=== PATIENT | male | born 1985 | race Caucasian/White ===

== ENCOUNTER → 2016-08-31 | Outpatient (CLI) | payer OTHER ==
[2016-08-31 19:23] LABS: BASO % 0.4 % (0.0-1.0); EOS # 0.1 K/mm3 (0.0-0.50); EOS % 2.4 % (0.0-3.0); LARGE UNSTAINED CELL # 0.2 K/mm3 (0.0-0.4); LARGE UNSTAINED CELL % 2.7 % (0.0-4.0); LYMPH # 1.6 K/mm3 (1.5-4.5); LYMPH % 25.9 % (24.0-44.0); MEAN CORPUSCULAR HEMOGLOBIN 30.4 pg (27.0-33.0); MEAN CORPUSCULAR HGB CONC 35.6 g/dl (32.0-36.5); MEAN CORPUSCULAR VOLUME 85.5 fl (80.0-96.0); MONO # 0.3 K/mm3 (0.0-0.8); MONO % 5.4 % (0.0-5.0); NEUTROPHILS # 3.8 K/mm3 (1.8-7.7); NEUTROPHILS % 63.2 % (36.0-66.0); PLATELET COUNT, AUTOMATED 213 k/mm3 (150-450); RED CELL DISTRIBUTION WIDTH 12.1 % (11.5-14.5)
== END ==
LOC: M WUC 17:27
PROVIDERS: ATTEND Physician Assistant
DX: K21.9 Gastro-esophageal reflux disease without esophagitis (principal)

== ENCOUNTER → 2016-09-25 | Outpatient (REF) | payer OTHER | LOC: M SFHCPLAZ 16:01 | PROVIDERS: ATTEND Nurse Practitioner Family | DX: Z00.00 Encounter for general adult medical examination without abnormal findings (principal); Z13.220 Encounter for screening for lipoid disorders ==

== ENCOUNTER 2016-10-10 14:14 | Emergency (ER) | payer OTHER ==
[2016-10-10] MEDS ORDERED: methylPREDNISolone INJ 125 MG/2 ML VIAL (J2930) As Ordered ONE (14:41)
[2016-10-10] MEDS ORDERED: FAMOTIDINE 20 MG TAB As Ordered ONE (14:41)
[2016-10-10] MEDS ORDERED: diphenhydrAMINE 25 MG CAP As Ordered ONE (14:41)
--- NOTE | 2016-10-10 15:53 | EDDOCDS ---
Physician Documentation [facility] Name: Ike Marcelino Age: 31 yrs Sex: Male : 1985 Arrival Date: 10/10/2016 Time: 14:14 Bed PD Private MD: Adolfo Clayton MD Disposition: 10/10/16 15:45 Discharged to Home/Self Care. Impression: Urticaria. - Condition is Stable. - Discharge Instructions: Hives. - Prescriptions for Prednisone 20 mg Oral Tablet - take 1 tablet by ORAL route once daily for 5 days; 5 tablet. Pepcid 20 mg Oral Tablet - take 1 tablet by ORAL route every 12 hours for 10 days; 20 tablet. - Medication Reconciliation form. - Follow up: Emergency Department; When: As needed. Follow up: Adolfo Clayton; When: Call to arrange an appointment; Reason: Wound/Symptom Recheck, Recheck today's complaints, Worsening of conditions, Continuance of care. - Problem is new. - Symptoms have improved. Historical: - Allergies: eggs; - Home Meds: 1. Prilosec 40 mg Oral cpDR 1 cap once daily - PMHx: GERD; - PSHx: none; - Social history: Smoking status: Patient states former smoker of tobacco. No barriers to communication noted, The patient speaks fluent Persian, Speaks appropriately for age. - Family history: Not pertinent. - : The pt / caregiver states he / she is not on anticoagulants. Home medication list is obtained from the patient. - Exposure Risk Screening:: None identified. Vital Signs: 10/10 14:16 BP 152 / 83; Pulse 111; Resp 18; Temp 96.9; Pulse Ox 100% ; Weight 72.57 kg / 159.99 cmb lbs; Height 5 ft. 8 in. (172.72 cm); Pain 0/10; 15:31 BP 130 / 71; Pulse 88; Resp 16; Temp 97.8(O); Pulse Ox 98% on R/A; Pain 0/10; sew 14:16 Body Mass Index 24.33 (72.57 kg, 172.72 cm) cmb MDM: 14:37 methylPREDNISolone Sodium Succinate 125 mg IM once ordered. cc10 14:37 diphenhydrAMINE 25 mg PO once ordered. cc10 14:37 Famotidine 20 mg PO once ordered. cc10 14:45 Vital Signs ordered. cc10 15:10 Financial registration complete. ks16 15:10 [facility] Payment Agreement was scanned into [employer] and attached to record. ks16 Administered Medications: 14:47 Drug: methylPREDNISolone Sodium Succinate 125 mg [methylprednisolone sodium succ 125 mg kc3 solution for injection (125 mg)] Route: IM; Site: right gluteus; 14:47 Drug: diphenhydrAMINE 25 mg [diphenhydramine 25 mg capsule (1 caps)] Route: PO; kc3 14:47 Drug: Famotidine 20 mg [famotidine 20 mg tablet (1 tabs)] Route: PO; kc3 Signatures: Kenneth Casanova, JR PAMegha cc10 Shikha Mckay RN RN kc3 Laura Hughes, Reg Reg ks16 The chart was reviewed and I authenticate all verbal orders and agree with the evaluation and treatment provided.Attachments: 15:10 [facility] Payment Agreement ks16 MTDD
--- NOTE | 2016-10-10 15:53 | EDDOCDS ---
Nurse's Notes [facility] Name: Ike Marcelino Age: 31 yrs Sex: Male : 1985 Arrival Date: 10/10/2016 Time: 14:14 Bed PD Private MD: Adolfo Clayton MD Diagnosis: Urticaria Presentation: 10/10 14:17 Presenting complaint: Patient states: hives and mild difficulty swallowing after eating kc3 pancake this AM. Pt reports no eggs in pancake. Onset: The symptoms/episode began/occurred at 13:55. The patient has a history of a previous allergic reaction. The previous reaction was anaphylactic. Anaphylaxis evaluation, the patient reports or I have noted the following symptoms which indicate a significant risk of anaphylaxis: lump in the throat which may suggest laryngeal edema. Adult Sepsis Screening: The patient does not have new or worsening altered mentation. Patient's respiratory rate is less than 22. Systolic blood pressure is greater than 100. Patient has a qSOFA score of 0- Negative Sepsis Screen. Suicide/Homicide risk assessment- the patient denies having any suicidal and/or homicidal ideations and does not present with any other emotional, behavioral or mental health complaints. Status: Patient is not a room service attendant or dependent. Transition of care: patient was not received from another setting of care. 14:17 Acuity: CAPO Level 3 kc3 14:17 Method Of Arrival: Walkin/Carried/Asstd kc3 Triage Assessment: 14:20 General: Appears in no apparent distress, comfortable, Behavior is appropriate for age, kc3 cooperative. Pain: Denies pain. HIV screening NA for this visit Offered previously. Respiratory: Airway is patent Reports mild "lump in my throat". Derm: Rash noted that is urticaria, on left arm. Historical: - Allergies: eggs; - Home Meds: 1. Prilosec 40 mg Oral cpDR 1 cap once daily - PMHx: GERD; - PSHx: none; - Social history: Smoking status: Patient states former smoker of tobacco. No barriers to communication noted, The patient speaks fluent Welsh, Speaks appropriately for age. - Family history: Not pertinent. - : The pt / caregiver states he / she is not on anticoagulants. Home medication list is obtained from the patient. - Exposure Risk Screening:: None identified. Screenin:51 Screening information is obtained from the patient. Fall risk: No risks identified. kc3 Assistance ADL's: requires no assistance with activities of daily living. Abuse/DV Screen: The patient / caregiver reports he/she is: not in a situation that causes fear, pain or injury. Nutritional screening: No deficits noted. Advance Directives: Currently, there is no health care proxy. home support is adequate. Assessment: 14:51 General: Appears in no apparent distress, comfortable, Behavior is appropriate for age, ms18 cooperative, pleasant. Pain: Denies pain. Neurological: Level of Consciousness is awake, alert, obeys commands, Oriented to person, place, time. EENT: Reports that his throat is a little scratchy . Respiratory: Airway is patent Breath sounds are clear bilaterally. Derm: Skin is pink, warm & dry. Rash noted that is itchy, urticaria, on palmar aspect of left forearm. 15:22 General: Appears in no apparent distress, comfortable, Behavior is appropriate for age, ms18 cooperative, Pt states that his arm is looking and feeling better, but now he has noticed some redness on his waistline. ER provider aware of this. Vital Signs: 14:16 BP 152 / 83; Pulse 111; Resp 18; Temp 96.9; Pulse Ox 100% ; Weight 72.57 kg; Height 5 cmb ft. 8 in. (172.72 cm); Pain 0/10; 15:31 BP 130 / 71; Pulse 88; Resp 16; Temp 97.8(O); Pulse Ox 98% on R/A; Pain 0/10; sew 14:16 Body Mass Index 24.33 (72.57 kg, 172.72 cm) cmb Vitals: 14:16 Log In Time: October 10, 2016 at 14:14. RN notified that patient meets Red Flag cmb criteria. ED Course: 14:15 Patient visited by Carole Johnson. cmb 14:15 Patient moved to Waiting cmb 14:16 Adolfo Clayton is Private Physician. cmb 14:17 Patient moved to Pre RCE kc3 14:19 Triage Initiated kc3 14:25 Patient moved to Triage 3 mlb1 14:31 [facility] cc10 14:31 Edu Early MD is Attending Physician. cc10 14:31 Patient visited by Kenneth Casanova PA-C. cc10 14:31 Patient visited by Kenneth Casanova PA-C. cc10 14:47 Patient moved to PD kc3 14:51 Patient visited by Anika No RN. ms18 15:10 [facility] Payment Agreement was scanned into [employer] and attached to record. ks16 15:22 Patient visited by Anika No RN. ms18 15:32 Patient visited by Aracelis Blake. sew 15:45 Adolfo Clayton is Referral Physician. cc10 15:51 The patient / caregiver is instructed regarding the plan of care and ED course. kc3 15:51 No IV's were initiated during this patient's visit. No procedures done that require kc3 assistance. Administered Medications: 14:47 Drug: methylPREDNISolone Sodium Succinate 125 mg [methylprednisolone sodium succ 125 mg kc3 solution for injection (125 mg)] Route: IM; Site: right gluteus; 14:47 Drug: diphenhydrAMINE 25 mg [diphenhydramine 25 mg capsule (1 caps)] Route: PO; kc3 14:47 Drug: Famotidine 20 mg [famotidine 20 mg tablet (1 tabs)] Route: PO; kc3 Order Results: There are currently no results for this order. Outcome: 15:45 Discharge ordered by Provider. cc10 15:51 Discharge Assessment: Patient awake, alert and oriented x 3. No cognitive and/or kc3 functional deficits noted. Patient verbalized understanding of disposition instructions. patient administered narcotics - no. The following High Risk Discharge criteria are identified: None. Discharged to home ambulatory. Condition: stable. Discharge instructions given to patient, Instructed on discharge instructions, follow up and referral plans. medication usage, Demonstrated understanding of instructions, medications, Pt was receptive of discharge instructions/ teaching. Prescriptions given X 2. No special radiology studies were completed. Property :Personal belongings accompany Pt. 15:52 Patient left the ED. kc3 Signatures: Kalen Alaniz RN RN mlCarole Hsieh Sarah sew Kenneth Casanova PA-C PA-C cc10 Anika No RN RN ms18 Shikha Mckay RN RN kc3 Laura Hughes, Reg Reg ks16 MTDD
--- NOTE | 2016-10-12 16:52 | EDDOCDS ---
Nurse's Notes [facility] Name: Ike Marcelino Age: 31 yrs Sex: Male : 1985 Arrival Date: 10/10/2016 Time: 14:14 Bed PD Private MD: Adolfo Clayton MD Diagnosis: Urticaria Presentation: 10/10 14:17 Presenting complaint: Patient states: hives and mild difficulty swallowing after eating kc3 pancake this AM. Pt reports no eggs in pancake. Onset: The symptoms/episode began/occurred at 13:55. The patient has a history of a previous allergic reaction. The previous reaction was anaphylactic. Anaphylaxis evaluation, the patient reports or I have noted the following symptoms which indicate a significant risk of anaphylaxis: lump in the throat which may suggest laryngeal edema. Adult Sepsis Screening: The patient does not have new or worsening altered mentation. Patient's respiratory rate is less than 22. Systolic blood pressure is greater than 100. Patient has a qSOFA score of 0- Negative Sepsis Screen. Suicide/Homicide risk assessment- the patient denies having any suicidal and/or homicidal ideations and does not present with any other emotional, behavioral or mental health complaints. 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 Transition of care: patient was not received from another setting of care. 14:17 Acuity: CAPO Level 3 kc3 14:17 Method Of Arrival: Walkin/Carried/Asstd kc3 Triage Assessment: 14:20 General: Appears in no apparent distress, comfortable, Behavior is appropriate for age, kc3 cooperative. Pain: Denies pain. HIV screening NA for this visit Offered previously. Respiratory: Airway is patent Reports mild "lump in my throat". Derm: Rash noted that is urticaria, on left arm. Historical: - Allergies: eggs; - Home Meds: 1. Prilosec 40 mg Oral cpDR 1 cap once daily - PMHx: GERD; - PSHx: none; - Social history: Smoking status: Patient states former smoker of tobacco. No barriers to communication noted, The patient speaks fluent Kyrgyz, Speaks appropriately for age. - Family history: Not pertinent. - : The pt / caregiver states he / she is not on anticoagulants. Home medication list is obtained from the patient. - Exposure Risk Screening:: None identified. Screenin:51 Screening information is obtained from the patient. Fall risk: No risks identified. kc3 Assistance ADL's: requires no assistance with activities of daily living. Abuse/DV Screen: The patient / caregiver reports he/she is: not in a situation that causes fear, pain or injury. Nutritional screening: No deficits noted. Advance Directives: Currently, there is no health care proxy. home support is adequate. Assessment: 14:51 General: Appears in no apparent distress, comfortable, Behavior is appropriate for age, ms18 cooperative, pleasant. Pain: Denies pain. Neurological: Level of Consciousness is awake, alert, obeys commands, Oriented to person, place, time. EENT: Reports that his throat is a little scratchy . Respiratory: Airway is patent Breath sounds are clear bilaterally. Derm: Skin is pink, warm & dry. Rash noted that is itchy, urticaria, on palmar aspect of left forearm. 15:22 General: Appears in no apparent distress, comfortable, Behavior is appropriate for age, ms18 cooperative, Pt states that his arm is looking and feeling better, but now he has noticed some redness on his waistline. ER provider aware of this. 15:52 General: Appears in no apparent distress, comfortable, Behavior is appropriate for age, kc3 cooperative. Pain: Denies pain. Respiratory: Airway is patent Respiratory effort is even, unlabored. Vital Signs: 14:16 BP 152 / 83; Pulse 111; Resp 18; Temp 96.9; Pulse Ox 100% ; Weight 72.57 kg; Height 5 cmb ft. 8 in. (172.72 cm); Pain 0/10; 15:31 BP 130 / 71; Pulse 88; Resp 16; Temp 97.8(O); Pulse Ox 98% on R/A; Pain 0/10; sew 14:16 Body Mass Index 24.33 (72.57 kg, 172.72 cm) cmb Vitals: 14:16 Log In Time: October 10, 2016 at 14:14. RN notified that patient meets Red Flag cmb criteria. ED Course: 14:15 Patient visited by Carole Johnson. cmb 14:15 Patient moved to Waiting cmb 14:16 Adolfo Clayton is Private Physician. cmb 14:17 Patient moved to Pre RCE kc3 14:19 Triage Initiated kc3 14:25 Patient moved to Triage 3 mlb1 14:31 [facility] cc10 14:31 Edu Early MD is Attending Physician. cc10 14:31 Patient visited by Kenneth Casanova PA-C. cc10 14:31 Patient visited by Kenneth Casanova PA-C. cc10 14:47 Patient moved to PD2 / kc3 14:51 Patient visited by Anika No RN. ms18 15:10 [facility] Payment Agreement was scanned into [employer] and attached to record. ks16 15:22 Patient visited by Anika No RN. ms18 15:32 Patient visited by Aracelis Blake. sew 15:45 Adolfo Clayton is Referral Physician. cc10 15:51 The patient / caregiver is instructed regarding the plan of care and ED course. kc3 15:51 No IV's were initiated during this patient's visit. No procedures done that require kc3 assistance. 10/11 09:36 T-Sheet-- Draft Copy was scanned into [employer] and attached to record. [facility] Administered Medications: 10/10 14:47 Drug: methylPREDNISolone Sodium Succinate 125 mg [methylprednisolone sodium succ 125 mg kc3 solution for injection (125 mg)] Route: IM; Site: right gluteus; 14:47 Drug: diphenhydrAMINE 25 mg [diphenhydramine 25 mg capsule (1 caps)] Route: PO; kc3 14:47 Drug: Famotidine 20 mg [famotidine 20 mg tablet (1 tabs)] Route: PO; kc3 Order Results: There are currently no results for this order. Outcome: 15:45 Discharge ordered by Provider. cc10 15:51 Discharge Assessment: Patient awake, alert and oriented x 3. No cognitive and/or kc3 functional deficits noted. Patient verbalized understanding of disposition instructions. patient administered narcotics - no. The following High Risk Discharge criteria are identified: None. Discharged to home ambulatory. Condition: stable. Discharge instructions given to patient, Instructed on discharge instructions, follow up and referral plans. medication usage, Demonstrated understanding of instructions, medications, Pt was receptive of discharge instructions/ teaching. Prescriptions given X 2. No special radiology studies were completed. Property :Personal belongings accompany Pt. 15:52 Patient left the ED. kc3 Signatures: Kalen Alaniz, RN RN mlb1 Carole Johnson Sarah sew [place], Colin, PA-C PA-C cc10 Anika No,RN RN ms18 Shikha Mckay,RN RN kc3 Laura Hughes, Reg Reg ks16 Paolo, Aracelis cortes Chart Complete MTDD
--- NOTE | 2016-10-12 16:52 | EDDOCDS ---
Physician Documentation [facility] Name: Ike Marcelino Age: 31 yrs Sex: Male : 1985 Arrival Date: 10/10/2016 Time: 14:14 Bed PD Private MD: Adolfo Clayton MD Disposition: 10/10/16 15:45 Discharged to Home/Self Care. Impression: Urticaria. - Condition is Stable. - Discharge Instructions: Hives. - Prescriptions for Prednisone 20 mg Oral Tablet - take 1 tablet by ORAL route once daily for 5 days; 5 tablet. Pepcid 20 mg Oral Tablet - take 1 tablet by ORAL route every 12 hours for 10 days; 20 tablet. - Medication Reconciliation form. - Follow up: Emergency Department; When: As needed. Follow up: Adolfo Clayton; When: Call to arrange an appointment; Reason: Wound/Symptom Recheck, Recheck today's complaints, Worsening of conditions, Continuance of care. - Problem is new. - Symptoms have improved. Historical: - Allergies: eggs; - Home Meds: 1. Prilosec 40 mg Oral cpDR 1 cap once daily - PMHx: GERD; - PSHx: none; - Social history: Smoking status: Patient states former smoker of tobacco. No barriers to communication noted, The patient speaks fluent Swedish, Speaks appropriately for age. - Family history: Not pertinent. - : The pt / caregiver states he / she is not on anticoagulants. Home medication list is obtained from the patient. - Exposure Risk Screening:: None identified. Vital Signs: 10/10 14:16 BP 152 / 83; Pulse 111; Resp 18; Temp 96.9; Pulse Ox 100% ; Weight 72.57 kg / 159.99 cmb lbs; Height 5 ft. 8 in. (172.72 cm); Pain 0/10; 15:31 BP 130 / 71; Pulse 88; Resp 16; Temp 97.8(O); Pulse Ox 98% on R/A; Pain 0/10; sew 14:16 Body Mass Index 24.33 (72.57 kg, 172.72 cm) cmb MDM: 14:37 methylPREDNISolone Sodium Succinate 125 mg IM once ordered. cc10 14:37 diphenhydrAMINE 25 mg PO once ordered. cc10 14:37 Famotidine 20 mg PO once ordered. cc10 14:45 Vital Signs ordered. cc10 15:10 Financial registration complete. wa16 15:10 [facility] Payment Agreement was scanned into [employer] and attached to record. wa10/11 09:36 T-Sheet-- Draft Copy was scanned into [employer] and attached to record. se Administered Medications: 10/10 14:47 Drug: methylPREDNISolone Sodium Succinate 125 mg [methylprednisolone sodium succ 125 mg kc3 solution for injection (125 mg)] Route: IM; Site: right gluteus; 14:47 Drug: diphenhydrAMINE 25 mg [diphenhydramine 25 mg capsule (1 caps)] Route: PO; kc3 14:47 Drug: Famotidine 20 mg [famotidine 20 mg tablet (1 tabs)] Route: PO; kc3 Signatures: Kenneth Casanova, PASamreenC PA-C cc10 Shikha Mckay RN RN kc3 Laura Hughes, Reg Reg ks16 Aracelis Boone [facility] The chart was reviewed and I authenticate all verbal orders and agree with the evaluation and treatment provided.Attachments: 15:10 [facility] Payment Agreement 10/11 09:36 T-Sheet-- Draft Copy [facility] Chart Complete MTDD
--- NOTE | 2016-10-12 16:52 | EDDOCDS ---
Physician Documentation [facility] Name: Ike Marcelino Age: 31 yrs Sex: Male : 1985 Arrival Date: 10/10/2016 Time: 14:14 Bed PD Private MD: Adolfo Clayton MD Disposition: 10/10/16 15:45 Discharged to Home/Self Care. Impression: Urticaria. - Condition is Stable. - Discharge Instructions: Hives. - Prescriptions for Prednisone 20 mg Oral Tablet - take 1 tablet by ORAL route once daily for 5 days; 5 tablet. Pepcid 20 mg Oral Tablet - take 1 tablet by ORAL route every 12 hours for 10 days; 20 tablet. - Medication Reconciliation form. - Follow up: Emergency Department; When: As needed. Follow up: Adolfo Clayton; When: Call to arrange an appointment; Reason: Wound/Symptom Recheck, Recheck today's complaints, Worsening of conditions, Continuance of care. - Problem is new. - Symptoms have improved. Historical: - Allergies: eggs; - Home Meds: 1. Prilosec 40 mg Oral cpDR 1 cap once daily - PMHx: GERD; - PSHx: none; - Social history: Smoking status: Patient states former smoker of tobacco. No barriers to communication noted, The patient speaks fluent Greek, Speaks appropriately for age. - Family history: Not pertinent. - : The pt / caregiver states he / she is not on anticoagulants. Home medication list is obtained from the patient. - Exposure Risk Screening:: None identified. Vital Signs: 10/10 14:16 BP 152 / 83; Pulse 111; Resp 18; Temp 96.9; Pulse Ox 100% ; Weight 72.57 kg / 159.99 cmb lbs; Height 5 ft. 8 in. (172.72 cm); Pain 0/10; 15:31 BP 130 / 71; Pulse 88; Resp 16; Temp 97.8(O); Pulse Ox 98% on R/A; Pain 0/10; sew 14:16 Body Mass Index 24.33 (72.57 kg, 172.72 cm) cmb MDM: 14:37 methylPREDNISolone Sodium Succinate 125 mg IM once ordered. cc10 14:37 diphenhydrAMINE 25 mg PO once ordered. cc10 14:37 Famotidine 20 mg PO once ordered. cc10 14:45 Vital Signs ordered. cc10 15:10 Financial registration complete. sd16 15:10 [facility] Payment Agreement was scanned into [email or web address] and attached to record. sd10/11 09:36 T-Sheet-- Draft Copy was scanned into [email or web address] and attached to record. se Administered Medications: 10/10 14:47 Drug: methylPREDNISolone Sodium Succinate 125 mg [methylprednisolone sodium succ 125 mg kc3 solution for injection (125 mg)] Route: IM; Site: right gluteus; 14:47 Drug: diphenhydrAMINE 25 mg [diphenhydramine 25 mg capsule (1 caps)] Route: PO; kc3 14:47 Drug: Famotidine 20 mg [famotidine 20 mg tablet (1 tabs)] Route: PO; kc3 Signatures: Kenneth Casanova, PASamreenC PA-C cc10 Shikha Mckay RN RN kc3 Laura Hughes, Reg Reg ks16 Aracelis Boone [facility] The chart was reviewed and I authenticate all verbal orders and agree with the evaluation and treatment provided.Attachments: 15:10 [facility] Payment Agreement 10/11 09:36 T-Sheet-- Draft Copy [facility] Chart Complete MTDD
== END 2016-10-10 15:52 | disposition home or self-care (01) ==
LOC: M ED 14:14
DX: L50.0 Allergic urticaria (principal); K21.9 Gastro-esophageal reflux disease without esophagitis; Z79.899 Other long term (current) drug therapy; Z91.012 Allergy to eggs; Z87.891 Personal history of nicotine dependence
CPT/HCPCS: 96372; 99283; J2930

== ENCOUNTER 2016-11-30 21:46 | Emergency (ER) | payer OTHER ==
[~2016-11-30] VITALS: Ht 172.7 cm; Wt 68.0 kg
[2016-11-30] MEDS ORDERED: KETOROLAC 60 MG/2 ML VIAL (J1885) IM ONE (23:45)
[2016-11-30 23:58] VITALS: BP 132/76
--- NOTE | 2016-12-01 05:10 | ECGEPIP ---
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
== END 2016-12-01 | disposition home or self-care (01) ==
LOC: M ED 23:11
DX: R07.89 Other chest pain (principal); K21.9 Gastro-esophageal reflux disease without esophagitis
CPT/HCPCS: 93005; 96372; 99282; J1885

== ENCOUNTER 2017-02-25 23:04 | Emergency (ER) | payer OTHER ==
[~2017-02-25] VITALS: Ht 172.7 cm; Wt 78.0 kg
[2017-02-25 23:05] VITALS: BP 129/73
[2017-02-25] MEDS ORDERED: LORA10TA2 PO (23:29)
[2017-02-25] MEDS ORDERED: PANT40TA2 PO (23:29)
== END 2017-02-26 03:26 | disposition left against medical advice (07) ==
LOC: M ED 23:04
DX: S80.861A Insect bite (nonvenomous), right lower leg, initial encounter (principal); W57.XXXA Bitten or stung by nonvenomous insect and other nonvenomous arthropods, initial encounter; Y92.9 Unspecified place or not applicable; Y93.9 Activity, unspecified; Y99.9 Unspecified external cause status; T78.40XA Allergy, unspecified, initial encounter; Z53.21 Procedure and treatment not carried out due to patient leaving prior to being seen by health care provider

== ENCOUNTER 2017-03-15 22:43 | Emergency (ER) | payer OTHER ==
[~2017-03-15] VITALS: Ht 172.7 cm; Wt 78.0 kg
[~2017-03-15 22:43] MED LIST: LORA10TA2 PO; PANT40TA2 PO
[2017-03-15 22:44] VITALS: BP 138/81
[2017-03-15] MEDS ORDERED: BENA25CA4 PO (22:53)
[2017-03-16] MEDS ORDERED: methylPREDNISolone INJ 125 MG/2 ML VIAL (J2930) IM ONE (00:45)
== END 2017-03-16 00:45 | disposition home or self-care (01) ==
LOC: M ED 22:43
DX: R21 Rash and other nonspecific skin eruption (principal); T78.40XA Allergy, unspecified, initial encounter; Y92.9 Unspecified place or not applicable; Y93.9 Activity, unspecified; J30.2 Other seasonal allergic rhinitis; F17.200 Nicotine dependence, unspecified, uncomplicated; Z79.899 Other long term (current) drug therapy; Z91.012 Allergy to eggs
CPT/HCPCS: 96374; 99282; J2930

== ENCOUNTER 2017-04-01 19:16 | Emergency (ER) | payer OTHER ==
[~2017-04-01] VITALS: Ht 172.7 cm; Wt 78.2 kg
[~2017-04-01 19:16] MED LIST changes: +BENA25CA4 PO
[2017-04-01 19:18] VITALS: BP 107/74
[2017-04-01] MEDS ORDERED: MEDR4PAK PO (20:26)
[2017-04-01] MEDS ORDERED: predniSONE 20 MG TAB PO ONE (20:30)
== END 2017-04-01 20:42 | disposition home or self-care (01) ==
LOC: M ED 19:16
DX: L50.0 Allergic urticaria (principal); K21.9 Gastro-esophageal reflux disease without esophagitis; Z91.012 Allergy to eggs; Z79.899 Other long term (current) drug therapy

== ENCOUNTER 2018-01-20 13:10 | Emergency (ER) | payer OTHER | END 2018-01-20 14:02 | disposition left against medical advice (07) | LOC: M ED 13:10 | DX: Z53.21 Procedure and treatment not carried out due to patient leaving prior to being seen by health care provider (principal) ==

== ENCOUNTER → 2018-01-26 | Outpatient (CLI) | payer OTHER ==
[2018-01-26 10:16] LABS: HEMATOCRIT 44.7 % (42.0-52.0); MEAN CORPUSCULAR HEMOGLOBIN 30.7 pg (27.0-33.0); MEAN CORPUSCULAR HGB CONC 35.8 g/dl (32.0-36.5); MEAN CORPUSCULAR VOLUME 85.6 fl (80.0-96.0); PLATELET COUNT, AUTOMATED 171 10^3/uL (150-450); RED BLOOD COUNT 5.22 10^6/uL (4.30-6.10); RED CELL DISTRIBUTION WIDTH 12.5 % (11.5-14.5); WHITE BLOOD COUNT 6.1 10^3/uL (4.0-10.0)
[2018-01-26 10:45] LABS: ALBUMIN 3.8 GM/DL (3.2-5.2); ALBUMIN/GLOBULIN RATIO 1.03 (1.00-1.93); ALKALINE PHOSPHATASE 69 U/L (45-117); ALT/SGPT 52 U/L (12-78); ANION GAP 6 MEQ/L (8-16); AST/SGOT 30 U/L (7-37); BILIRUBIN,TOTAL 0.4 MG/DL (0.2-1.0); BLOOD UREA NITROGEN 7 MG/DL (7-18); CALCIUM LEVEL 8.7 MG/DL (8.5-10.1); CARBON DIOXIDE LEVEL 32 MEQ/L (21-32); CHLORIDE LEVEL 107 MEQ/L (98-107); CREATININE FOR GFR 0.87 MG/DL (0.70-1.30); GLOMERULAR FILTRATION RATE > 60.0 (>60); GLUCOSE, FASTING 91 MG/DL (70-100); LIPASE 95 U/L (73-393); POTASSIUM SERUM 3.8 MEQ/L (3.5-5.1); SODIUM LEVEL 145 MEQ/L (136-145); TOTAL PROTEIN 7.5 GM/DL (6.4-8.2)
== END ==
LOC: M LAB 09:42
DX: D69.6 Thrombocytopenia, unspecified (principal); R10.84 Generalized abdominal pain
CPT/HCPCS: 83690

== ENCOUNTER → 2018-01-26 | Outpatient (REF) | payer OTHER | LOC: M SFHCPLAZ 09:22 | DX: D69.6 Thrombocytopenia, unspecified (principal); R10.84 Generalized abdominal pain ==

== ENCOUNTER 2018-04-20 12:05 | Emergency (ER) | payer OTHER ==
[2018-04-20] MEDS: IBUPROFEN 600 MG TAB PO (15:46)
== END 2018-04-20 15:52 | disposition home or self-care (01) ==
LOC: M ED 12:05
DX: L55.0 Sunburn of first degree (principal); L55.1 Sunburn of second degree; F17.200 Nicotine dependence, unspecified, uncomplicated; Z91.012 Allergy to eggs; Z79.52 Long term (current) use of systemic steroids; Z79.899 Other long term (current) drug therapy
CPT/HCPCS: 99283

== ENCOUNTER 2018-09-08 23:10 | Emergency (ER) | payer OTHER ==
[~2018-09-08] VITALS: Ht 172.7 cm; Wt 79.5 kg
[2018-09-08 23:10] VITALS: BP 143/76
[~2018-09-08 23:10] MED LIST changes: -NEOM1SOL19 OTIC; -PANT40TA3
[2018-09-08] MEDS ORDERED: PANT40TA3 PO (23:15)
[2018-09-08] MEDS ORDERED: NEOM1SOL19 OTIC (23:59)
[2018-09-14] MEDS ORDERED: TYLE325T5 PO (11:47)
== END 2018-09-09 00:09 | disposition home or self-care (01) ==
LOC: M ED 23:10
DX: H61.22 Impacted cerumen, left ear (principal); K21.9 Gastro-esophageal reflux disease without esophagitis; Z79.899 Other long term (current) drug therapy; Z91.012 Allergy to eggs; F17.210 Nicotine dependence, cigarettes, uncomplicated

== ENCOUNTER → 2018-09-08 | Outpatient (CLI) | payer OTHER ==
[~2018-09-08] MED LIST changes: +BANO25CA; +DICY20TA PO; +EXCETAB80 PO; +IBUP-1022 PO; +LORA-243 PO; -LORA10TA2 PO; +MEDR4PAK PO; +NEOM1SOL19 OTIC; +OMEP40CA2 PO; +ONDA4TAB5 SL; -PANT40TA2 PO; +PANT40TA3; +PANT40TA3 PO; +PRED10PA
[2018-09-08 14:59] LABS: HEMATOCRIT 45.2 % (42.0-52.0); MEAN CORPUSCULAR HEMOGLOBIN 29.7 pg (27.0-33.0); MEAN CORPUSCULAR HGB CONC 35.4 g/dl (32.0-36.5); PLATELET COUNT, AUTOMATED 194 10^3/uL (150-450); RED BLOOD COUNT 5.38 10^6/uL (4.30-6.10)
== END ==
LOC: M LAB 14:38
PROVIDERS: ATTEND Physician Assistant Medical
DX: K62.5 Hemorrhage of anus and rectum (principal)

== ENCOUNTER 2018-10-27 13:11 | Emergency (ER) | payer OTHER ==
[~2018-10-27] VITALS: Ht 172.7 cm; Wt 77.3 kg
[~2018-10-27 13:11] MED LIST changes: +NEOM1SOL19 OTIC; +TYLE325T5 PO
[2018-10-27] MEDS ORDERED: LANS30CA (13:28)
[2018-10-27] MEDS ORDERED: GI COCKTAIL 50ML BTL(HYOSCYAMINE/MAALOX/LIDOCAINE VISCOUS)(1:3:1) PO ONE (14:00)
[2018-10-27] MEDS ORDERED: NS 1,000 ML IV ONE (14:15)
--- NOTE | 2018-10-27 14:31 | REP ---
CT Head without contrast HISTORY: Dizziness COMPARISON: 06/25/2016 There is no intraparenchymal hemorrhage, acute infarct, mass or midline shift. The ventricular system is normal in appearance. There is no extra cerebral collection. There is no fracture. The visualized sinuses are clear. IMPRESSION: There is no intracranial lesion. Electronically Signed by Doe Gandhi MD 10/27/2018 02:22 P
--- NOTE | 2018-10-27 14:57 | REP ---
CHEST PA/LATERAL: 10/27/2018. CLINICAL HISTORY: Chest pain. COMPARISON: 07/14/2016 FINDINGS: Lungs are well inflated and without infiltrate, effusion, atelectasis, or mass. The heart, mediastinal and hilar contours are normal. The aorta and airway intact. No widening of the mediastinum. No apical scarring or pneumothorax. I see no free air under the diaphragm. Bony thorax shows no compression deformity or focal lesion. IMPRESSION: 1. No acute cardiopulmonary change, stable chest. Electronically Signed by Jah Siddiqui MD 10/27/2018 07:52 P
[2018-10-27 15:21] LABS: BASO % 0.2 % (0.0-1.0); EOS # 0.1 10^3/uL (0.0-0.50); EOS % 2.6 % (0.0-3.0); HEMATOCRIT 44.5 % (42.0-52.0); HEMOGLOBIN 15.9 g/dl (13.5-17.5); LYMPH # 1.4 10^3/uL (1.5-4.5); LYMPH % 28.6 % (24.0-44.0); MEAN CORPUSCULAR HEMOGLOBIN 30.5 pg (27.0-33.0); MEAN CORPUSCULAR HGB CONC 35.7 g/dl (32.0-36.5); MEAN CORPUSCULAR VOLUME 85.4 fl (80.0-96.0); MONO # 0.4 10^3/uL (0.0-0.8); MONO % 8.2 % (0.0-5.0); PLATELET COUNT, AUTOMATED 197 10^3/uL (150-450); RED BLOOD COUNT 5.21 10^6/uL (4.30-6.10)
[2018-10-27 15:34] LABS: ALBUMIN 4.2 GM/DL (3.2-5.2); ALT/SGPT 62 U/L (12-78); BILIRUBIN,TOTAL 0.4 MG/DL (0.2-1.0); BLOOD UREA NITROGEN 17 MG/DL (7-18); CALCIUM LEVEL 8.9 MG/DL (8.5-10.1); CARBON DIOXIDE LEVEL 31 MEQ/L (21-32); CHLORIDE LEVEL 105 MEQ/L (98-107); CK-MB VALUE MASS < 1.0 NG/ML (<3.6); CPK CREATINE PHOSPHOKINASE 92 U/L (39-308); CREATININE FOR GFR 0.91 MG/DL (0.70-1.30); GLOMERULAR FILTRATION RATE > 60.0 (>60); GLUCOSE, FASTING 82 MG/DL (70-100); MB/CK RELATIVE INDEX 1.09 (< OR =4); POTASSIUM SERUM 4.3 MEQ/L (3.5-5.1); SODIUM LEVEL 142 MEQ/L (136-145); TOTAL PROTEIN 7.9 GM/DL (6.4-8.2); TROPONIN I < 0.02 NG/ML (< 0.10)
[2018-10-27] MEDS ORDERED: VIST25CA PO (15:52)
[2018-10-27] MEDS ORDERED: PROT1TAB2 PO (15:52)
[2018-10-27] MEDS ORDERED: PANTOPRAZOLE 40MG TAB (PROTONIX) PO ONE (16:00)
[2018-10-27 16:18] VITALS: BP 130/68
--- NOTE | 2018-10-27 19:23 | ECGEPIP ---
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
== END 2018-10-27 16:21 | disposition home or self-care (01) ==
LOC: M ED 13:11
DX: K21.9 Gastro-esophageal reflux disease without esophagitis (principal); F41.9 Anxiety disorder, unspecified; R68.84 Jaw pain; F17.200 Nicotine dependence, unspecified, uncomplicated; Z91.012 Allergy to eggs; Z79.899 Other long term (current) drug therapy

== ENCOUNTER → 2019-05-24 | Outpatient (CLI) | payer OTHER ==
[~2019-05-24] MED LIST changes: +LANS30CA PO; -OMEP40CA2 PO; +OMEP40CA97 PO; +PROT1TAB2 PO; +VIST25CA PO
[2019-05-24 14:04] LABS: ALBUMIN 3.9 GM/DL (3.2-5.2); ALT/SGPT 65 U/L (12-78); BILIRUBIN,TOTAL 0.5 MG/DL (0.2-1.0); BLOOD UREA NITROGEN 14 MG/DL (7-18); CALCIUM LEVEL 9.5 MG/DL (8.5-10.1); CARBON DIOXIDE LEVEL 30 MEQ/L (21-32); CHLORIDE LEVEL 106 MEQ/L (98-107); CHOLESTEROL LEVEL 220 MG/DL (<200); CHOLESTEROL RISK RATIO 4.489 (<5); CREATININE FOR GFR 0.92 MG/DL (0.70-1.30); GLOMERULAR FILTRATION RATE > 60.0 (>60); GLUCOSE, FASTING 79 MG/DL (70-100); HDL CHOLESTEROL 49 MG/DL (>40); LDL CHOLESTEROL 117 MG/DL (<100); NON-HDL-C 171 MG/DL; POTASSIUM SERUM 4.6 MEQ/L (3.5-5.1); SODIUM LEVEL 142 MEQ/L (136-145); TOTAL PROTEIN 7.7 GM/DL (6.4-8.2); TRIGLYCERIDES LEVEL 268 MG/DL (<150)
[2019-05-24 14:07] LABS: TOTAL 25(OH) VITAMIN D 28.9 NG/ML (30.0-100.0)
== END ==
LOC: M LAB 12:05
PROVIDERS: ATTEND Nurse Practitioner Family
DX: Z00.00 Encounter for general adult medical examination without abnormal findings (principal)

== ENCOUNTER 2019-05-25 11:10 | Day surgery (SDC) | payer OTHER ==
[~2019-05-25] VITALS: Ht 167.6 cm; Wt 82.6 kg
[~2019-05-25 11:10] MED LIST changes: +OMEP40CA2 PO; -OMEP40CA97 PO
[2019-05-25] MEDS ORDERED: NS 1,000 ML IV ONE (11:45)
[2019-05-25] MEDS ORDERED: LIDOCAINE 2% INJ 100 MG/5 ML SDV (FOR ANES.) As Ordered ONE (12:12)
[2019-05-25] MEDS ORDERED: PROPOFOL 200 MG/20 ML VIAL As Ordered ONE (12:12)
[2019-05-25] MEDS ORDERED: fentaNYL 100 MCG/2 ML INJECTION (J3010) As Ordered ONE (12:29)
--- NOTE | 2019-05-25 13:04 | ROOR ---
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 Procedure: Pre-Anesthesia Assessment: - Prior to the procedure, a History and Physical was performed, and patient medications and allergies were reviewed. The patient is competent. The risks and benefits of the procedure and the sedation options and risks were discussed with the patient. All questions were answered and informed consent was obtained. Patient identification and proposed procedure were verified by the physician, the nurse and the anesthesiologist in the procedure room. Mental Status Examination: alert and oriented. Airway Examination: normal oropharyngeal airway and neck mobility. Respiratory Examination: clear to auscultation. CV Examination: normal. Prophylactic Antibiotics: The patient does not require prophylactic antibiotics. Prior Anticoagulants: The patient has taken no previous anticoagulant or antiplatelet agents. ASA Grade Assessment: II - A patient with mild systemic disease. After reviewing the risks and benefits, the patient was deemed in satisfactory condition to undergo the procedure. The anesthesia plan was to use monitored anesthesia care (MAC). Immediately prior to administration of medications, the patient was re-assessed for adequacy to receive sedatives. The heart rate, respiratory rate, oxygen saturations, blood pressure, adequacy of pulmonary ventilation, and response to care were monitored throughout the procedure. The physical status of the patient was re-assessed after the procedure. The Endoscope was introduced through the mouth, and advanced to the second part of duodenum. The upper GI endoscopy was accomplished without difficulty. The patient tolerated the procedure well. Findings: LA Grade A (one or more mucosal breaks less than 5 mm, not extending between tops of 2 mucosal folds) esophagitis with no bleeding was found in the distal esophagus. Biopsies were taken with a cold forceps for histology. Verification of patient identification for the specimen was done by the physician and nurse using the patient's name, date and medical record number. Estimated blood loss was minimal. The Z-line was irregular and was found 40 cm from the incisors. Diffuse moderate inflammation characterized by erythema, friability and granularity was found in the gastric antrum. Four biopsies were obtained with cold forceps for histology in the gastric antrum, as well as four biopsies in the gastric body. The duodenal bulb and second portion of the duodenum were normal. Impression: - LA Grade A reflux esophagitis. Rule out Hawkins's esophagus. Biopsied. - Z-line irregular, 40 cm from the incisors. - Atrophic gastritis. - Normal duodenal bulb and second portion of the duodenum. - Biopsies performed in the gastric antrum and in the gastric body. Recommendation: - Patient has a contact number available for emergencies. The signs and symptoms of potential delayed complications were discussed with the patient. Return to normal activities tomorrow. Written discharge instructions were provided to the patient. - High fiber diet. - Continue present medications. - Await pathology results. 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 - Telephone GI clinic for pathology results in 2 weeks. - Return to primary care physician. Barry Yancey MD Barry Yancey MD 05/25/2019 1:04:39 PM Electronically signed by Barry Yancey MD Number of Addenda: 0 Note Initiated On: 05/25/2019 12:23 PM Estimated Blood Loss: Estimated blood loss was minimal.
[2019-05-25 13:29] VITALS: BP 140/85
== END 2019-05-25 13:31 | disposition home or self-care (01) ==
LOC: M OPP 11:10
PROVIDERS: ATTEND Internal Medicine Gastroenterology
DX: K21.0 Gastro-esophageal reflux disease with esophagitis (principal); K22.8 Other specified diseases of esophagus; K29.40 Chronic atrophic gastritis without bleeding; K22.70 Barrett's esophagus without dysplasia; K31.89 Other diseases of stomach and duodenum; F17.210 Nicotine dependence, cigarettes, uncomplicated; Z91.012 Allergy to eggs
CPT/HCPCS: 43239; 88305; J3010

== ENCOUNTER → 2020-06-10 | Outpatient (CLI) | payer OTHER ==
[~2020-06-10] MED LIST changes: +D 101000 PO; +HYDR-3363 PO; -OMEP40CA2 PO; +OMEP40CA97 PO; +ONDA-83 SL; -ONDA4TAB5 SL; +PANT40TA29 PO; -PANT40TA3 PO
--- NOTE | 2020-06-10 14:09 | REP ---
INDICATION: ABD PAIN, NAUSEA, VOMITING, GERD. Generalized abdominal pain. Evaluate gallbladder. COMPARISON: None. TECHNIQUE: Right upper quadrant sonographic scanning. FINDINGS: Scanning through the right upper quadrant of the abdomen demonstrates a normal sized, thin-walled gallbladder without evidence of stone or polyp. Common bile duct is normal measuring 0.4 cm in greatest diameter. No focal liver lesion is seen. Liver size is normal. There is evidence of diffuse fatty infiltration of the liver parenchyma. No pancreatic abnormality is observed. No right renal abnormality is seen. There is no evidence of ascites. The right kidney measures 11.5 x 6.6 x 5.2 cm. IMPRESSION: Evidence of mild diffuse fatty infiltration of the liver. Otherwise negative right upper quadrant sonography.. <Electronically signed by Socrates Torres > 06/10/20 [id number]
== END ==
LOC: M RAD 06:54
PROVIDERS: ATTEND Physician Assistant Medical
DX: K76.0 Fatty (change of) liver, not elsewhere classified (principal)

== ENCOUNTER → 2020-09-09 | Outpatient (CLI) | payer OTHER ==
[~2020-09-09] MED LIST changes: -DICY20TA PO; +DICY20TA3 PO
== END ==
LOC: M LABSMTC 13:38
PROVIDERS: ATTEND Family Medicine
DX: Z20.822 Contact with and (suspected) exposure to COVID-19 (principal)